=== PATIENT | female | born 1960 | race Caucasian/White ===

== ENCOUNTER → 2017-02-11 | Day surgery (SDC) | payer OTHER ==
[~2017-02-11] VITALS: Ht 167.6 cm; Wt 69.3 kg
[~2017-02-11] MED LIST: BENTYL10 MG PO; COUMADIN ** IA5 MG PO; CYCLOBENZAPRINE10 MG PO; LASIX20 MG PO; PERCOCET 10-321 EACH PO; PROTONIX40 MG PO; ULTRAM50 MG PO; ZOLOFT100 MG PO
--- NOTE | ~2017-02-11 | OR ---
PATIENT'S NAME: ENOCH SOTELO [facility] AGE: 56 Y [address] ROOM: [place] [address] LOCATION: [facility] ADMIT DATE: 02/11/2017 OR/Procedure Report DISCHARGE DATE: FAMILY PHYSICIAN: JW JACKSON MD ATTENDING PHYSICIAN: NAVEED CATHERINE SURGEON: Silas Anguiano MD PRESS TECHNICIAN: DATE OF PROCEDURE: 02/11/2017 PROCEDURE PERFORMED: Esophagogastroduodenoscopy with biopsies. INDICATION: Abdominal pain, diarrhea, and nausea. MEDICATIONS: Please see anesthesiology record for details. CONSENT: The risks/benefits/alternatives were discussed and the patient or her power of civil rights attorney expressed understanding and agreed to proceed. Informed consent was obtained and placed in the chart. Time-out was completed prior to starting the procedure. DESCRIPTION OF PROCEDURE: The patient was placed in the left lateral decubitus position. One-lead EKG monitoring was used along with intermittent blood pressure monitoring and pulse oximetry. Bite block was placed in the patient's mouth. The above medications were given and titrated to response. Once adequate sedation was completed, the endoscope was passed through the patient's mouth into the posterior oropharynx. The endoscope was then passed into the esophagus, stomach, and duodenal bulb. The duodenum was examined through the third portion. The endoscope was then withdrawn into the stomach. In the stomach, retroflexion was completed. The scope was then straightened and withdrawn from the patient. The patient tolerated the procedure well. There were no complications. SUMMARY OF FINDINGS: 1. Normal esophagus. 2. Normal stomach, status post biopsies to rule out H pylori. 3. Normal duodenum. There were some areas of some subtle villous blunting. Status post biopsies to rule out celiac disease. ASSESSMENT AND PLAN: Abdominal pain, nausea, and diarrhea: There is nothing obvious that explains the patient's symptoms on exam. We will proceed with colonoscopy and await biopsies for further recommendations. PATIENT'S NAME: ENOCH SOTELO [facility] AGE: 56 Y [address] ROOM: [place] [address] LOCATION: [facility] ADMIT DATE: 02/11/2017 OR/Procedure Report DISCHARGE DATE: FAMILY PHYSICIAN: JW JACKSON MD ATTENDING PHYSICIAN: NAVEED CATHERINE MD JRT/aleksl /[id number] d: 02/11/17 1320 t: 02/14/17 1428, OPERATIVE SUMMARY
--- NOTE | ~2017-02-11 | OR ---
PATIENT'S NAME: ENOCH SOTELO [facility] AGE: 56 Y [address] ROOM: [place] [address] LOCATION: [facility] ADMIT DATE: 02/11/2017 OR/Procedure Report DISCHARGE DATE: FAMILY PHYSICIAN: JW JACKSON MD ATTENDING PHYSICIAN: NAVEED CATHERINE SURGEON: Silas Anguiano MD VIDEO PLAYER MECHANIC: DATE OF PROCEDURE: 02/11/2017 PROCEDURE: Colonoscopy with biopsies. INDICATION: Diarrhea. MEDICATIONS: Please see anesthesiology record for details. CONSENT: The risks/benefits/alternatives were discussed and the patient or her power of attorney lawyer expressed understanding and agreed to proceed. Informed consent was obtained and placed on the chart. Time-out was completed prior to starting the procedure. PROCEDURE: Patient was placed in the left lateral decubitus position. One lead EKG monitoring was used along with intermittent blood pressure monitoring and pulse oximetry. The above medications were given and titrated to response. Once adequate sedation was completed, rectal exam was performed. The colonoscope was then passed through the rectum, into the sigmoid colon. The scope was then passed through the descending, transverse and ascending colon. The scope was then passed into the cecum. The cecum was identified by the ileocecal valve and appendiceal orifice. The scope was then withdrawn. On withdrawal, the mucosa of the colon was examined. In the rectum, retroflexion was completed. The scope was then withdrawn from the patient. The patient tolerated the procedure well. There were no complications. SUMMARY OF FINDINGS: 1. Normal colonic mucosa from the rectum to the cecum. There were no polyps. Random biopsies were taken throughout the colon to rule out microscopic colitis. 2. The terminal ileum was intubated and appeared normal. 3. Internal hemorrhoids, small and nonbleeding. 4. Diverticulosis, mainly in the sigmoid colon. ASSESSMENT AND PLAN: Diarrhea. Nothing seen on colonoscopy today. We explained the patient's symptoms. We will await pathology results to rule out microscopic colitis. Recommend follow up in clinic in 2 to 4 weeks if symptoms persist. PATIENT'S NAME: ENOCH SOTELO [facility] AGE: 56 Y [address] ROOM: [place] [address] LOCATION: [facility] ADMIT DATE: 02/11/2017 OR/Procedure Report DISCHARGE DATE: FAMILY PHYSICIAN: JW JACKSON MD ATTENDING PHYSICIAN: NAVEED CATHERINE J MD SRINIVASAN DÍAZ/modl /[id number] d: 02/11/17 1329 t: 02/14/17 1431, OPERATIVE SUMMARY
[2017-02-11 07:24] LABS: INR - (THERAPEUTIC) 1.18 (0.92-1.07); PROTIME 12.4 SECONDS (9.8-11.4)
== END ==
LOC: GPOC 02-08 11:00 → GEND 06:44
PROVIDERS: Internal Medicine Gastroenterology
PROC: 0DBE8ZX Excision of Large Intestine, Via Natural or Artificial Opening Endoscopic, Diagnostic (ICD-10-PCS; principal; 2017-02-11)
PROC: 0DB68ZX Excision of Stomach, Via Natural or Artificial Opening Endoscopic, Diagnostic (ICD-10-PCS; 2017-02-11)
PROC: 0DB88ZX Excision of Small Intestine, Via Natural or Artificial Opening Endoscopic, Diagnostic (ICD-10-PCS; 2017-02-11)
DX: K64.8 Other hemorrhoids (principal); K57.30 Diverticulosis of large intestine without perforation or abscess without bleeding; K21.9 Gastro-esophageal reflux disease without esophagitis; I82.409 Acute embolism and thrombosis of unspecified deep veins of unspecified lower extremity; D64.9 Anemia, unspecified; Z88.8 Allergy status to other drugs, medicaments and biological substances; Z90.49 Acquired absence of other specified parts of digestive tract; Z98.890 Other specified postprocedural states; Z79.899 Other long term (current) drug therapy
CPT/HCPCS: J7030

== ENCOUNTER → 2017-02-22 | Outpatient (CLI) | payer OTHER | END | disposition disaster alternative care site (69) | LOC: GRAD 02-16 15:00 | DX: D64.9 Anemia, unspecified (principal); K83.8 Other specified diseases of biliary tract; R10.9 Unspecified abdominal pain; R94.5 Abnormal results of liver function studies; Z90.49 Acquired absence of other specified parts of digestive tract ==

== ENCOUNTER → 2017-03-07 | Day surgery (SDC) | payer OTHER ==
[~2017-03-07] VITALS: Ht 167.6 cm; Wt 73.8 kg
[2017-03-07 08:40] LABS: INR - (THERAPEUTIC) 1.03 (0.92-1.07); PROTIME 10.8 SECONDS (9.8-11.4)
== END | disposition disaster alternative care site (69) ==
LOC: GPOC 03-03 09:00 → GEND 07:45 → GPOC 09:00
PROVIDERS: Internal Medicine Gastroenterology
PROC: 0DJ08ZZ Inspection of Upper Intestinal Tract, Via Natural or Artificial Opening Endoscopic (ICD-10-PCS; principal; 2017-03-07)
DX: K80.50 Calculus of bile duct without cholangitis or cholecystitis without obstruction (principal); D64.9 Anemia, unspecified; I25.10 Atherosclerotic heart disease of native coronary artery without angina pectoris; I34.0 Nonrheumatic mitral (valve) insufficiency; I10 Essential (primary) hypertension; G43.909 Migraine, unspecified, not intractable, without status migrainosus; Z86.73 Personal history of transient ischemic attack (TIA), and cerebral infarction without residual deficits; Z90.710 Acquired absence of both cervix and uterus; Z90.49 Acquired absence of other specified parts of digestive tract; Z98.890 Other specified postprocedural states
CPT/HCPCS: J2001; J7030

== ENCOUNTER → 2017-03-08 | Day surgery (SDC) | payer OTHER ==
[~2017-03-08] VITALS: Ht 167.6 cm; Wt 75.0 kg
== END | disposition disaster alternative care site (69) ==
LOC: GEND 08:14 → GOPP 08:30
PROC: 0F9C80Z Drainage of Ampulla of Vater with Drainage Device, Via Natural or Artificial Opening Endoscopic (ICD-10-PCS; principal; 2017-03-08)
DX: R10.9 Unspecified abdominal pain (principal); I25.10 Atherosclerotic heart disease of native coronary artery without angina pectoris; I34.1 Nonrheumatic mitral (valve) prolapse; I10 Essential (primary) hypertension; Z86.73 Personal history of transient ischemic attack (TIA), and cerebral infarction without residual deficits; Z88.8 Allergy status to other drugs, medicaments and biological substances; Z90.710 Acquired absence of both cervix and uterus; Z90.49 Acquired absence of other specified parts of digestive tract; Z98.890 Other specified postprocedural states
CPT/HCPCS: C1769; J0690; J1100; J1885; J2001; J2405; J3010; J7030